=== PATIENT | male | born 1980 | race Caucasian/White ===

== ENCOUNTER 2021-05-21 09:18 | Emergency (ER) | payer OTHER ==
[~2021-05-21] VITALS: Ht 177.8 cm; Wt 81.8 kg
[2021-05-21] MEDS ORDERED: normal saline 1000ml 1,000 ML IV ONE (09:30)
[2021-05-21 10:50] VITALS: BP 144/89
--- NOTE | 2021-05-21 11:00 | NUR ---
PATIENT IS BEING TRANSFERRED BACK TO [facility] AFTER EDG PERFORMED. PATIENT REFUSED TO HAVE LABS DONE AND PULLED OUT HIS OWN IV WHEN THE BOLUS WAS COMPLETED.
--- NOTE | 2021-05-21 11:07 | NUR ---
PATIENT IS TRANSPORTING BACK TO FACILITY PER EMS. ATTEMPT TO CALL REPORT TO [facility]IL[facility] BUT HAD TO LEAVE MESSAGE.
== END 2021-05-21 11:19 ==
LOC: ER 09:20
DX: F31.9 Bipolar disorder, unspecified (principal); F20.9 Schizophrenia, unspecified
CPT/HCPCS: 93005; 99283; J7030; 96360